=== PATIENT | male | born 1950 | race Caucasian/White ===

== ENCOUNTER 2017-12-28 17:58 | Inpatient (IN) ==
[2017-12-28] MEDS ORDERED: traZODone 50 MG TABLET PO PRN (18:54)
[2017-12-28] MEDS ORDERED: ZALEPLON 5 MG CAPSULE PO PRN (18:54)
[2017-12-28] MEDS ORDERED: guaiFENesin/DM ER 600-30 MG TABLET PO PRN (18:54)
[2017-12-28] MEDS ORDERED: ACETAMINOPHEN 325 MG TABLET PO PRN (18:54)
[2017-12-28] MEDS ORDERED: MORPHINE 2 MG/1 ML SYRINGE IV PRN (18:54)
[2017-12-28] MEDS ORDERED: ONDANSETRON 4 MG/2 ML VIAL IV PRN (18:54)
[2017-12-28] MEDS ORDERED: ALBUTEROL 2.5 MG/3 ML NEB RESP TX PRN (21:24)
[2017-12-28] MEDS ORDERED: cefTRIAXone 1,000 MG in SYRINGE 1 EACH IV SCH (22:00)
[2017-12-28] MEDS: methylPREDNISolone SOD SUC 125 MG/2 ML VIAL IV SCH (22:26)
[2017-12-28] MEDS: DOXYCYCLINE HYCLATE INJ 100 MG in SODIUM CHLORIDE 0.9% 100 ML IV SCH (22:27)
[2017-12-28] MEDS: DOCUSATE SODIUM 100 MG CAPSULE PO SCH (22:32)
[2017-12-29] MEDS: ALBUTEROL/IPRATROPIUM 3 ML NEB RESP TX SCH ×4 (01:38→18:50)
[2017-12-29 02:50] LABS: Basophils % 0.2 % (0.0-0.8); Eosinophils % 0.1 % (0.00-10.9); Hematocrit 48.3 VOL% (42.0-52.0); Hemoglobin 15.6 GM/DL (14.0-18.0); Immature Granulocytes % 0.6 %; Immature Granulocytes Absolute 0.08 #; Lymphocytes # 0.4 10*3/uL (1.4-4.0); Lymphocytes % 2.8 % (21.2-54.2); Mean Corpuscular HGB Conc 32.3 GM/DL (32-36); Mean Corpuscular Hemoglobin 28 PG (27-34); Mean Corpuscular Volume 87.5 FL (87-102); Mean Platelet Volume 9.8 FL (9.6-12.0); Monocytes # 0.1 10*3/uL (0.11-0.8); Monocytes % 0.5 % (1.7-12.7); Neutrophils # 12.1 10*3/uL (1.4-7.4); Neutrophils % 95.8 % (38.7-73.9); Platelet Count 226 T/CUMM (130-400); Red Blood Count 5.52 MC/CUMM (3.8-5.5); Red Cell Distribution Width 15.1 % (9.3-17.3); White Blood Count 12.6 T/CUMM (4-12)
[2017-12-29 02:55] LABS: INR 1.8; PT Patient Result 18.7 SECS
[2017-12-29 04:02] LABS: Albumin 3.5 G/DL (3.4-5.0); Bilirubin,Total 0.6 MG/DL (0.2-1.0); Calcium 8.2 MG/DL (8.5-10.1); Osmolality,Calculated 293.5 MOS/KG (273-304); Potassium 4.7 MMOL/L (3.5-5.1); Total Protein 6.9 G/DL (6.4-8.3)
[2017-12-29 04:17] LABS: Thyroid Stimulating Hormone 0.899 uIU/ml (0.358-3.74)
[2017-12-29 05:51] LABS: Band Neutrophils 4 % (0-10); Lymphocytes 1 % (20-55); Segmented Neutrophils 94 % (50-85)
[2017-12-29 05:53] LABS: Platelet Estimate Normal
[2017-12-29 05:54] LABS: Total Cells Counted 100
[2017-12-29] MEDS: methylPREDNISolone SOD SUC 125 MG/2 ML VIAL IV SCH (06:09)
[2017-12-29] MEDS ORDERED: IPRATROPIUM 500 MCG/2.5 ML NEB RESP TX SCH (07:00)
[2017-12-29] MEDS ORDERED: AMIODARONE 200 MG TABLET PO SCH (09:00)
[2017-12-29] MEDS ORDERED: LOSARTAN 50 MG TABLET PO SCH (09:00)
[2017-12-29] MEDS: DOCUSATE SODIUM 100 MG CAPSULE PO SCH (09:18)
[2017-12-29] MEDS: amLODIPine 5 MG TABLET PO SCH (09:18)
[2017-12-29] MEDS: NORTRIPTYLINE 25 MG CAPSULE PO SCH (09:18)
[2017-12-29] MEDS: THEOPHYLLINE ER 300 MG TABLET PO SCH ×2 (09:19→20:58)
[2017-12-29] MEDS: SERTRALINE 100 MG TABLET PO SCH (09:19)
[2017-12-29] MEDS: BUDESONIDE/FORMOTEROL 160-4.5 INHALER 6 GM INH SCH ×2 (09:19→20:58)
[2017-12-29] MEDS: ALLOPURINOL 300 MG TABLET PO SCH (09:19)
[2017-12-29] MEDS: PANTOPRAZOLE 40 MG TABLET PO SCH (09:19)
[2017-12-29] MEDS: DOXYCYCLINE HYCLATE INJ 100 MG in SODIUM CHLORIDE 0.9% 100 ML IV SCH ×2 (09:21→21:21)
[2017-12-29] MEDS ORDERED: GLUCAGON 1 MG VIAL IM PRN (09:53)
[2017-12-29] MEDS ORDERED: DEXTROSE 50% 25 GM/50 ML VIAL IV PRN (09:53)
[2017-12-29 10:41] LABS: Lactic Acid 3.6 MMOL/L (0.4-2.0)
[2017-12-29] MEDS: SODIUM CHLORIDE 0.9% 1,000 ML IV SCH (10:41)
[2017-12-29 11:20] LABS: ABG Base Excess -7.2 MMOL/L (-2.5-2.5); ABG HCO3 18.7 MMOL/L (20-26); ABG PCO2 29.1 MM HG (35-48); ABG PH 7.367 (7.35-7.45); ABG PO2 83.5 MM HG (80-95); ABG TCO2 14.1 MMOL/L (23-27); Allen Test Positive; Pt O2 Delivery Device Venturi Mask
[2017-12-29] MEDS ORDERED: methylPREDNISolone SOD SUC 125 MG/2 ML VIAL IV SCH (12:00)
[2017-12-29] MEDS: INSULIN LISPRO 100 UNIT/ML SUBCUT SCH ×2 (12:24→17:32)
[2017-12-29] MEDS: PIPERACILLIN/TAZOBACTAM 3,375 MG in SODIUM CHLORIDE 0.9% 100 ML IV SCH ×2 (12:26→22:30)
[2017-12-29] MEDS ORDERED: WARFARIN 3 MG TABLET PO SCH (18:00)
[2017-12-29] MEDS: methylPREDNISolone SOD SUC 40 MG/1 ML VIAL IV SCH (18:11)
[2017-12-30] MEDS: ALBUTEROL/IPRATROPIUM 3 ML NEB RESP TX SCH ×3 (00:30→19:41)
[2017-12-30] MEDS: INSULIN LISPRO 100 UNIT/ML SUBCUT SCH ×5 (01:45→21:44)
[2017-12-30] MEDS: DOCUSATE SODIUM 100 MG CAPSULE PO SCH ×3 (01:45→21:44)
[2017-12-30] MEDS: PIPERACILLIN/TAZOBACTAM 3,375 MG in SODIUM CHLORIDE 0.9% 100 ML IV SCH ×3 (05:22→21:47)
[2017-12-30] MEDS: SODIUM CHLORIDE 0.9% 1,000 ML IV SCH (05:23)
[2017-12-30 06:14] LABS: Basophils % 0.1 % (0.0-0.8); Hematocrit 36.6 VOL% (42.0-52.0); Immature Granulocytes % 0.6 %; Immature Granulocytes Absolute 0.07 #; Lymphocytes # 0.3 10*3/uL (1.4-4.0); Lymphocytes % 2.9 % (21.2-54.2); Mean Corpuscular HGB Conc 32.8 GM/DL (32-36); Mean Corpuscular Hemoglobin 29 PG (27-34); Mean Corpuscular Volume 87.8 FL (87-102); Mean Platelet Volume 10.1 FL (9.6-12.0); Monocytes # 0.4 10*3/uL (0.11-0.8); Monocytes % 3.8 % (1.7-12.7); NRBC # 0.02 10*3/uL; Neutrophils # 10.7 10*3/uL (1.4-7.4); Neutrophils % 92.6 % (38.7-73.9); Platelet Count 149 T/CUMM (130-400); Red Blood Count 4.17 MC/CUMM (3.8-5.5); Red Cell Distribution Width 15.6 % (9.3-17.3); White Blood Count 11.5 T/CUMM (4-12)
[2017-12-30 06:22] LABS: INR 1.6; PT Patient Result 16.6 SECS
[2017-12-30] MEDS: methylPREDNISolone SOD SUC 40 MG/1 ML VIAL IV SCH ×2 (06:24→18:32)
[2017-12-30 06:49] LABS: Calcium 8.1 MG/DL (8.5-10.1); Osmolality,Calculated 290.5 MOS/KG (273-304)
[2017-12-30] MEDS ORDERED: PANTOPRAZOLE 40 MG TABLET PO SCH (09:00)
[2017-12-30] MEDS: ALLOPURINOL 300 MG TABLET PO SCH (09:32)
[2017-12-30] MEDS: THEOPHYLLINE ER 300 MG TABLET PO SCH ×2 (09:32→21:43)
[2017-12-30] MEDS: BUDESONIDE/FORMOTEROL 160-4.5 INHALER 6 GM INH SCH ×2 (09:32→21:44)
[2017-12-30] MEDS: SERTRALINE 100 MG TABLET PO SCH (09:32)
[2017-12-30] MEDS: amLODIPine 5 MG TABLET PO SCH (09:33)
[2017-12-30] MEDS: NORTRIPTYLINE 25 MG CAPSULE PO SCH (09:33)
[2017-12-30] MEDS: PANTOPRAZOLE 40 MG TABLET PO SCH (09:33)
[2017-12-30] MEDS: DOXYCYCLINE HYCLATE INJ 100 MG in SODIUM CHLORIDE 0.9% 100 ML IV SCH ×2 (09:37→20:35)
[2017-12-30] MEDS: ENOXAPARIN 120 MG/0.8 ML SYRINGE SUBCUT SCH (12:27)
[2017-12-30] MEDS ORDERED: WARFARIN 7.5 MG TABLET PO SCH (18:00)
[2017-12-30] MEDS: DILTIAZEM CD 120 MG CAPSULE PO SCH (21:43)
[2017-12-31] MEDS: ALBUTEROL/IPRATROPIUM 3 ML NEB RESP TX SCH ×4 (00:54→20:29)
[2017-12-31] MEDS: SODIUM CHLORIDE 0.9% 1,000 ML IV SCH (04:49)
[2017-12-31] MEDS: PIPERACILLIN/TAZOBACTAM 3,375 MG in SODIUM CHLORIDE 0.9% 100 ML IV SCH ×3 (04:55→20:56)
[2017-12-31 05:06] LABS: INR 1.6; PT Patient Result 16.6 SECS
[2017-12-31] MEDS ORDERED: MIDAZOLAM 2 MG/2 ML VIAL ONE (06:56)
[2017-12-31] MEDS: methylPREDNISolone SOD SUC 40 MG/1 ML VIAL IV SCH ×2 (06:56→17:53)
[2017-12-31] MEDS ORDERED: PROMETHAZINE 25 MG/1 ML VIAL IM ONE (07:00)
[2017-12-31] MEDS ORDERED: LIDOCAINE 2% 20 ML VIAL RESP TX ONE (07:30)
[2017-12-31] MEDS ORDERED: MIDAZOLAM 2 MG/2 ML VIAL IV ONE (07:30)
[2017-12-31] MEDS ORDERED: LIDOCAINE 1% 20 ML VIAL MISC INJ ONE (07:30)
[2017-12-31] MEDS: DOXYCYCLINE HYCLATE INJ 100 MG in SODIUM CHLORIDE 0.9% 100 ML IV SCH (11:10)
[2017-12-31] MEDS: THEOPHYLLINE ER 300 MG TABLET PO SCH ×2 (11:13→20:48)
[2017-12-31] MEDS: NORTRIPTYLINE 25 MG CAPSULE PO SCH (11:13)
[2017-12-31] MEDS: SERTRALINE 100 MG TABLET PO SCH (11:13)
[2017-12-31] MEDS: ALLOPURINOL 300 MG TABLET PO SCH (11:13)
[2017-12-31] MEDS: PANTOPRAZOLE 40 MG TABLET PO SCH (11:14)
[2017-12-31] MEDS: DOCUSATE SODIUM 100 MG CAPSULE PO SCH ×2 (11:14→20:49)
[2017-12-31] MEDS: DILTIAZEM CD 120 MG CAPSULE PO SCH (11:14)
[2017-12-31] MEDS: INSULIN LISPRO 100 UNIT/ML SUBCUT SCH ×4 (11:15→20:59)
[2017-12-31] MEDS: BUDESONIDE/FORMOTEROL 160-4.5 INHALER 6 GM INH SCH ×2 (11:15→20:50)
[2017-12-31] MEDS: ENOXAPARIN 120 MG/0.8 ML SYRINGE SUBCUT SCH (12:39)
[2017-12-31] MEDS: METOPROLOL SUCCINATE XL 25 MG TABLET PO SCH (17:53)
[2017-12-31] MEDS: DILTIAZEM CD 180 MG CAPSULE PO SCH (20:49)
[2018-01-01] MEDS: DOXYCYCLINE HYCLATE INJ 100 MG in SODIUM CHLORIDE 0.9% 100 ML IV SCH (00:59)
[2018-01-01] MEDS: ALBUTEROL/IPRATROPIUM 3 ML NEB RESP TX SCH ×4 (01:46→13:48)
[2018-01-01] MEDS: PIPERACILLIN/TAZOBACTAM 3,375 MG in SODIUM CHLORIDE 0.9% 100 ML IV SCH (04:36)
[2018-01-01 04:47] LABS: Basophils % 0.1 % (0.0-0.8); Hematocrit 43.2 VOL% (42.0-52.0); Hemoglobin 14.2 GM/DL (14.0-18.0); Immature Granulocytes Absolute 0.12 #; Lymphocytes # 0.5 10*3/uL (1.4-4.0); Lymphocytes % 4.6 % (21.2-54.2); Mean Corpuscular HGB Conc 32.9 GM/DL (32-36); Mean Corpuscular Hemoglobin 29 PG (27-34); Mean Corpuscular Volume 86.7 FL (87-102); Mean Platelet Volume 9.3 FL (9.6-12.0); Monocytes # 0.5 10*3/uL (0.11-0.8); Monocytes % 4.5 % (1.7-12.7); Neutrophils # 10.4 10*3/uL (1.4-7.4); Neutrophils % 89.8 % (38.7-73.9); Platelet Count 247 T/CUMM (130-400); Red Blood Count 4.98 MC/CUMM (3.8-5.5); Red Cell Distribution Width 15.7 % (9.3-17.3); White Blood Count 11.6 T/CUMM (4-12)
[2018-01-01 05:10] LABS: INR 1.4; PT Patient Result 14.7 SECS
[2018-01-01 05:12] LABS: Lymphocytes 1 % (20-55); Segmented Neutrophils 95 % (50-85); Total Cells Counted 100
[2018-01-01 05:13] LABS: Microcytosis Slight; Platelet Estimate Normal
[2018-01-01 05:14] LABS: Osmolality,Calculated 289.1 MOS/KG (273-304)
[2018-01-01] MEDS: methylPREDNISolone SOD SUC 40 MG/1 ML VIAL IV SCH (05:38)
[2018-01-01] MEDS ORDERED: DOXYCYCLINE HYCLATE 100 MG CAPSULE PO SCH (09:00)
[2018-01-01] MEDS ORDERED: predniSONE 20 MG TABLET PO SCH (09:00)
[2018-01-01] MEDS: INSULIN LISPRO 100 UNIT/ML SUBCUT SCH ×2 (09:03→12:08)
[2018-01-01] MEDS: THEOPHYLLINE ER 300 MG TABLET PO SCH (09:05)
[2018-01-01] MEDS: DILTIAZEM CD 180 MG CAPSULE PO SCH (09:05)
[2018-01-01] MEDS: PANTOPRAZOLE 40 MG TABLET PO SCH (09:05)
[2018-01-01] MEDS: SERTRALINE 100 MG TABLET PO SCH (09:05)
[2018-01-01] MEDS: METOPROLOL SUCCINATE XL 25 MG TABLET PO SCH (09:05)
[2018-01-01] MEDS: ALLOPURINOL 300 MG TABLET PO SCH (09:05)
[2018-01-01] MEDS: NORTRIPTYLINE 25 MG CAPSULE PO SCH (09:05)
[2018-01-01] MEDS: DOCUSATE SODIUM 100 MG CAPSULE PO SCH (09:05)
[2018-01-01] MEDS: BUDESONIDE/FORMOTEROL 160-4.5 INHALER 6 GM INH SCH (09:07)
[2018-01-01 11:54] VITALS: BP 139/69
[2018-01-01] MEDS: ENOXAPARIN 120 MG/0.8 ML SYRINGE SUBCUT SCH (12:07)
[2018-01-02 13:50] LABS: Mycoplasma pneumoniae Ab, IgG Positive; Mycoplasma pneumoniae Ab, IgM Negative
[2018-01-02 13:52] LABS: Mycoplasma pneumoniae Ab Inter SEE COMMENTS
== END 2018-01-01 02:00 | disposition home or self-care (01) | DRG 166 ==
LOC: SUATTDRO 19:48 → N.TELEN 19:48
PROVIDERS: ADMIT Internal Medicine; ATTEND Hospitalist